=== PATIENT | female | born 1985 | race Caucasian/White ===

== ENCOUNTER 2022-05-29 05:20 | Emergency (ER) | payer SELFPAY ==
--- NOTE | 2022-05-29 05:39 | ED Integumentary General ---
General Stated Complaint: RASH Source: patient Exam Limitations: no limitations (MADDY SILVA MD) History of Present Illness Date Seen by Provider: May 29, 2022 Time Seen by Provider: 17:25 Initial Comments Patient is a 36-year-old female who presents to the emergency department today with a chief complaint of diffuse maculopapular rash. Slightly erythematous. She woke up just prior to arrival itching with a diffuse rash that involves her face torso and extremities. She recently started Lamictal about a week ago. She was concerned as her prescriber advised her that if she developed any type of rash she needed to come immediately to the emergency department. She denies any voice change or difficulty swallowing. No shortness of breath, cough. No wheezing. No nausea, vomiting or diarrhea. She has never had anything like this before. She cannot think of any other triggers that may have caused the rash. No recent illnesses. No vaccinations. No sick contacts. She was started on Lamictal for bipolar disorder. Timing/Duration: this morning Severity: moderate Location: generalized Possible Cause: medications (possibly lamictal) Associated Symptoms: other (pruritis) (MADDY SILVA MD) Allergies and Home Medications Allergies Coded Allergies: lamotrigine (Verified Allergy, Unknown, 05/29/22) Patient Home Medication List Home Medication List Reviewed: Yes (MADDY SILVA MD) Review of Systems Review of Systems Constitutional: see HPI EENTM: no symptoms reported Respiratory: no symptoms reported Cardiovascular: no symptoms reported Gastrointestinal: no symptoms reported Genitourinary: no symptoms reported Skin: pruritus, rash Psychiatric/Neurological: Other (bipolar disorder) (MADDY SILVA MD) All Other Systems Reviewed Negative Unless Noted: Yes (MADDY SILVA MD) Physical Exam Vital Signs Vital Signs - First Documented 05/29/22 05:35 Temp 36.7 Pulse 113 Resp 20 B/P (MAP) 128/92 (104) Pulse Ox 98 (TIEN RUBI MD) Vital Signs Capillary Refill : (MADDY SILVA MD) General Appearance: WD/WN, no apparent distress HEENT: PERRL/EOMI, pharynx normal, other (no mucous membrane involvement) Neck: non-tender, full range of motion, supple Cardiovascular: regular rate, rhythm Respiratory: lungs clear, normal breath sounds, no respiratory distress, no acc essory muscle use Extremities: normal range of motion, normal inspection, no pedal edema Neurologic/Psychiatric: alert, normal mood/affect ((anxious)), oriented x 3 Skin: normal color, warm/dry Skin Problem Location: generalized Skin Problem Character: erythema, patchy, rash, other (hive-like, maculpapular; does not involve the lips or oral mucosa; is present sparingly on the face) (MADDY SILVA MD) Progress/Results/Core Measures Results/Orders Medications Given in ED Current Medications Medications Dose Ordered Sig/Naveed Route Start Time Stop Time Status Last Admin Dose Admin Diphenhydramine HCl 50 mg ONCE ONCE PO 05/29/22 05:45 05/29/22 05:46 DC 05/29/22 05:46 50 MG Famotidine 20 mg ONCE ONCE PO 05/29/22 05:45 05/29/22 05:46 DC 05/29/22 05:46 20 MG (TIEN RUBI MD) Vital Signs/I&O 05/29/22 05/29/22 05:35 06:11 Temp 36.7 36.7 Pulse 113 113 Resp 20 20 B/P (MAP) 128/92 (104) 128/92 Pulse Ox 98 98 (TIEN RUBI MD) Progress Progress Note : Time: 05:45 Progress Note Patient seen and examined, 36-year-old who presents with rash and itching status post recently starting Lamictal. Evaluation today includes a physical exam. She last took her Lamictal last evening. She has not taken any medications for the rash. Differential diagnosis considering history and physical examination includes allergic reaction to lamictal, at risk for Andres-Vitaly, hives induced by some other trigger/idiopathic. Patient's vital signs are stable. She has no airway compromise. She will be treated with Benadryl and Pepcid. Would not at this point give her prednisone as she has bipolar disorder and would not want to trigger a zoe. Recommendations for Benadryl and Pepcid for the next couple of days while her body metabolizes the Lamictal. Would recommend that she call her provider this morning to arrange for another medication so that she is not unmedicated for her bipolar disorder and at risk for exacerbations. Patient is comfortable with plan of care. All questions are sought and answered. (MADDY SILVA MD) Progress Note : Progress Note 0627: Reevaluated. Patient states that she is actually feeling better. I rediscussed discharge instructions. Discharged home with return precautions. Patient and family verbalized understanding instructions and agreement with plan. (TIEN RUBI MD) Departure Impression Primary Impression: Hives Disposition: 01 HOME, SELF-CARE Condition: Improved Departure-Patient Inst. Decision time for Depature: 05:47 (MADDY SILVA MD) Decision time for Depature: 06:28 (TIEN RUBI MD) Referrals: [facility] (PCP/Family) Primary Care Physician Patient Instructions: [place]der (DC) Add. Discharge Instructions: Take heyi-whh-bgnpelg Benadryl 1 to 2 tablets every 6 hours as needed for itching. Cool showers will help decrease the itching as well. Take extk-wtw-phprmoq generic Pepcid 20 mg twice daily for the next 2 to 3 days. Please contact your provider at [facility] today, this morning so that you can be reevaluated in clinic hopefully today and possibly start a new medication for your bipolar disorder as soon as possible. Return to the emergency department if you notice any skin blistering or peeling, shortness of breath, difficulty swallowing or speaking or any other emergent, concerning symptoms. Copy Copies To 1: DIEGO FONSECA KATHRYN M MD May 29, 2022 05:39 TIEN RUBI MD May 29, 2022 06:29
[2022-05-29] MEDS ORDERED: FAMOTIDINE 20 MG (PEPCID) TABLET PO ONE (05:45)
[2022-05-29] MEDS ORDERED: diphenhydrAMINE 25 MG TAB (BENADRYL) PO ONE (05:45)
[2022-05-29 06:11] VITALS: BP 128/92
[2022-05-30] MEDS ORDERED: FAMO40TA72 PO (10:34)
[2022-05-30] MEDS ORDERED: PRD20T PO (10:34)
== END 2022-05-29 06:34 | disposition home or self-care (01) ==
LOC: EDUNIT# 05:20 → ER 05:24
DX: L50.9 Urticaria, unspecified (principal); F31.9 Bipolar disorder, unspecified; Z88.8 Allergy status to other drugs, medicaments and biological substances; Z28.310 Unvaccinated for COVID-19; Z79.899 Other long term (current) drug therapy
CPT/HCPCS: 99283

== ENCOUNTER 2022-05-30 07:55 | Emergency (ER) | payer SELFPAY ==
[~2022-05-30] VITALS: Ht 149 cm; Wt 55.0 kg
[2022-05-30] MEDS ORDERED: FAMOTIDINE 20MG/2ML IV (PEPCID) IV STA (08:44)
[2022-05-30] MEDS ORDERED: methylPREDNISolone 125 MG (Solu-MEDROL) VIAL IV STA (08:44)
[2022-05-30] MEDS ORDERED: diphenhydrAMINE 50 MG/ML INJ (BENADRYL) IV STA (08:44)
[2022-05-30] MEDS ORDERED: NS IV 1000 ML 1,000 ML IV SCH (08:45)
--- NOTE | 2022-05-30 08:46 | ED Integumentary General ---
General Chief Complaint: Allergic Reaction Stated Complaint: ALLERGIC REACTION TO PRESCRIPTION MEDICATION Nursing Triage Note: PT AMB TO RM 5 PT CO OF ALLERGIC RX TO LAMICTAL, STATES WAS SEEN IN ED. PT HAS BEEN TAKING BENADRYL AND PEPCID, PT CONT TO HAVE HIVES ITCHING, IS HYPERVENTILATING. PT STATES FEELS WEAK AND BOTTOM LIP IS SWOLLEN. Source: patient History of Present Illness Date Seen by Provider: May 30, 2022 Time Seen by Provider: 08:35 Initial Comments PT ARRIVES VIA POV FROM HOME WITH PARENTS C/O HIVES ALL OVER BODY SINCE YESTERDAY MORNING SHE WAS SEEN IN ER YESTERDAY MORNING FOR SAME. SHE WAS GIVEN BENADRYL AND PEPCID AND HIVES WENT AWAY PT HAD BEEN STARTED ON LAMICTAL ABOUT 1 1/2 WEEKS AGO FOR BIPOLAR NO OTHER NEW MEDICATIONS, FOODS/DRINKS OR PRODUCTS NO HISTORY OF SIMILAR SHE CALLED HER MENTAL HEALTH PROVIDER YESTERDAY, AFTER BEING SEEN IN ER, AND THE PROVIDER ADVISED HER TO CONTINUE TO TAKE THE MEDICATION, SO SHE TOOK IT AGAIN YESTERDAY--LAST DOSE WAS AT 1800 LAST NIGHT. THE HIVES RETURNED DURING THE NIGHT, AND ARE WORSE, AND NOW HER LOWER LIP IS SWOLLEN AND SHE IS HAVING A LITTLE BIT OF DIFFICULTY SWALLOWING SHE IS VERY ANXIOUS AND FEELS SHAKEY NO DIFFICULTY BREATHING OR TALKING AND VOICE IS NOT HOARSE. NO COUGH SHE FEELS A LITTLE LIGHTHEADED WHEN SHE STANDS UP. NO SYNCOPE NO CHEST PAIN OR PALPITATIONS NO WHEEZING NO NAUSEA/VOMITING. NO FEVER/SWEATS PCP: NONE MENTAL HEALTH: [facility] Allergies and Home Medications Allergies Coded Allergies: lamotrigine (Verified Allergy, Unknown, 05/29/22) Patient Home Medication List Famotidine (Pepcid) 40 Mg Tablet, 40 MG PO DAILY Prescribed by: ROBRET DURHAM on 05/30/22 1034 Prednisone (Prednisone) 20 Mg Tab, 40 MG PO DAILY Prescribed by: ROBERT DURHAM on 05/30/22 1034 Review of Systems Review of Systems Constitutional: see HPI, dizziness EENTM: see HPI Respiratory: no symptoms reported; No cough, No short of breath, No wheezing Cardiovascular: no symptoms reported; No chest pain, No edema, No palpitations, No syncope, No vascular heart diseas Gastrointestinal: no symptoms reported Genitourinary: no symptoms reported Musculoskeletal: no symptoms reported Skin: see HPI Psychiatric/Neurological: Anxiety; Denies Headache, Denies Numbness, Denies Paresthesia, Denies Seizure, Denies Tingling, Denies Tremors, Denies Weakness Endocrine: No Symptoms Reported Hematologic/Lymphatic: No Symptoms Reported Past Sezdugm-Iafnyc-Pbzttg Hx Patient Social History Tobacco Use?: Yes Tobacco type used: Cigarettes Smoking Status: Current Everyday Smoker Use of E-Cig and/or Vaping dev: No Substance use?: No Alcohol Use?: No Pt feels they are or have been: No Immunizations Up To Date Influenza Vaccine Up-to-Date: No; Not Current First/Initial COVID19 Vaccinat: Y Second COVID19 Vaccination Jaya: Y Past Medical History Surgery/Hospitalization HX: BIPOLAR Surgeries: No Respiratory: No Cardiac: No Neurological: No : No Genitourinary: No Gastrointestinal: No Musculoskeletal: No Endocrine: No HEENT: No Cancer: No Psychosocial: Yes Anxiety, Bipolar, Depression Physical Exam Vital Signs Vital Signs - First Documented 05/30/22 08:25 Temp 36.7 Pulse 109 Resp 28 B/P (MAP) 133/88 (103) Pulse Ox 100 Capillary Refill : Less Than 3 Seconds General Appearance: WD/WN, no apparent distress, other (VERY ANXIOUS, TALKING RAPIDLY, NON-STOP AND IS MILDLY HYPERVENTILATING ON ARRIVAL) HEENT: PERRL/EOMI, other (MILD SWELLING OF LOWER LIP. NO INTRA-ORAL SWELLING. ) Neck: non-tender, normal inspection Cardiovascular: regular rate, rhythm, no murmur Respiratory: normal breath sounds, no respiratory distress, no accessory muscle use Gastrointestinal: non tender, soft Back: normal inspection, no CVA tenderness Extremities: normal range of motion, non-tender, no pedal edema, no calf tenderness, normal capillary refill Neurologic/Psychiatric: trial justice II-XII nml as tested, no motor/sensory deficits, alert, oriented x 3, other (ANXIOUS) Skin: normal color, warm/dry, other (PATCHY HIVES SCATTERED OVER MOST OF BODY--PALMS ARE INVOLVED, WITH MILD SWELLING OF HYPOTHENAR EMINENCES. NO RASH TO FACE OR SCALP OR SOLES. ) Progress/Results/Core Measures Results/Orders Lab Results Laboratory Tests Test 05/30/22 09:00 05/30/22 09:42 Range/Units White Blood Count 9.5 4.3-11.0 10^3/uL Red Blood Count 4.83 3.80-5.11 10^6/uL Hemoglobin 14.7 11.5-16.0 g/dL Hematocrit 44 35-52 % Mean Corpuscular Volume 91 80-99 fL Mean Corpuscular Hemoglobin 30 25-34 pg Mean Corpuscular Hemoglobin Concent 34 32-36 g/dL Red Cell Distribution Width 12.1 10.0-14.5 % Platelet Count 260 130-400 10^3/uL Mean Platelet Volume 9.3 9.0-12.2 fL Immature Granulocyte % (Auto) 0 % Neutrophils (%) (Auto) 81 H 42-75 % Lymphocytes (%) (Auto) 12 12-44 % Monocytes (%) (Auto) 6 0-12 % Eosinophils (%) (Auto) 0 0-10 % Basophils (%) (Auto) 0 0-10 % Neutrophils # (Auto) 7.7 1.8-7.8 10^3/uL Lymphocytes # (Auto) 1.2 1.0-4.0 10^3/uL Monocytes # (Auto) 0.6 0.0-1.0 10^3/uL Eosinophils # (Auto) 0.0 0.0-0.3 10^3/uL Basophils # (Auto) 0.0 0.0-0.1 10^3/uL Immature Granulocyte # (Auto) 0.0 0.0-0.1 10^3/uL Erythrocyte Sedimentation Rate 3 0-20 MM/HR Prothrombin Time 13.6 12.2-14.7 SEC INR Comment 1.0 0.8-1.4 Activated Partial Thromboplast Time 36 H 24-35 SEC Sodium Level 137 135-145 MMOL/L Potassium Level 3.6 3.6-5.0 MMOL/L Chloride Level 107 98-107 MMOL/L Carbon Dioxide Level 19 L 21-32 MMOL/L Anion Gap 11 5-14 MMOL/L Blood Urea Nitrogen 12 7-18 MG/DL Creatinine 0.87 0.60-1.30 MG/DL Estimat Glomerular Filtration Rate 89 BUN/Creatinine Ratio 14 Glucose Level 93 70-105 MG/DL Calcium Level 9.6 8.5-10.1 MG/DL Corrected Calcium 9.2 8.5-10.1 MG/DL Total Bilirubin 0.8 0.1-1.0 MG/DL Aspartate Amino Transf (AST/SGOT) 16 5-34 U/L Alanine Aminotransferase (ALT/SGPT) 22 0-55 U/L Alkaline Phosphatase 50 40-136 U/L C-Reactive Protein High Sensitivity 0.28 0.00-0.50 MG/DL Total Protein 7.1 6.4-8.2 GM/DL Albumin 4.5 3.2-4.5 GM/DL Serum Test, Qualitative NEGATIVE NEGATIVE Urine Color YELLOW Urine Clarity CLEAR Urine pH 6.0 5-9 Urine Specific [place] 1.015 L 1.016-1.022 Urine Protein NEGATIVE NEGATIVE Urine Glucose (UA) NEGATIVE NEGATIVE Urine Ketones NEGATIVE NEGATIVE Urine Nitrite NEGATIVE NEGATIVE Urine Bilirubin NEGATIVE NEGATIVE Urine Urobilinogen 0.2 < = 1.0 MG/DL Urine Leukocyte Esterase NEGATIVE NEGATIVE Urine RBC (Auto) NEGATIVE NEGATIVE Urine RBC NONE /HPF Urine WBC NONE /HPF Urine Squamous Epithelial Cells RARE /HPF Urine Crystals NONE /LPF Urine Bacteria NEGATIVE /HPF Urine Casts NONE /LPF Urine Mucus NEGATIVE /LPF Urine Culture Indicated NO Urine Opiates Screen NEGATIVE NEGATIVE Urine Oxycodone Screen NEGATIVE NEGATIVE Urine Methadone Screen NEGATIVE NEGATIVE Urine Propoxyphene Screen NEGATIVE NEGATIVE Urine Barbiturates Screen NEGATIVE NEGATIVE Ur Tricyclic Antidepressants Screen NEGATIVE NEGATIVE Urine Phencyclidine Screen NEGATIVE NEGATIVE Urine Amphetamines Screen NEGATIVE NEGATIVE Urine Methamphetamines Screen NEGATIVE NEGATIVE Urine Benzodiazepines Screen NEGATIVE NEGATIVE Urine Cocaine Screen NEGATIVE NEGATIVE Urine Cannabinoids Screen NEGATIVE NEGATIVE My Orders Orders - ROBERT DURHAM DO Ed Iv/Invasive Line Start (05/30/22 08:44) Monitor-Rhythm Ecg Trace Only (05/30/22 08:44) Cbc With Automated Diff (05/30/22 08:44) Comprehensive Metabolic Panel (05/30/22 08:44) Hs C Reactive Protein (05/30/22 08:44) Hcg,Qualitative Serum (05/30/22 08:44) Protime With Inr (05/30/22 08:44) Partial Thromboplastin Time (05/30/22 08:44) Erythrocyte Sedimentation Rate (05/30/22 08:44) Ed Iv/Invasive Line Start (05/30/22 08:44) Ns Iv 1000 Ml (Sodium Chloride 0.9%) (05/30/22 08:45) Famotidine Injection (Pepcid Injection) (05/30/22 08:44) Diphenhydramine Injection (Benadryl Inje (05/30/22 08:44) Methylprednisolone Sod Succ (Solu-Medrol (05/30/22 08:44) Drug Screen Stat (Urine) (05/30/22 09:01) Ua Culture If Indicated (05/30/22 09:01) Diphenhydramine Injection (Benadryl Inje (05/30/22 10:15) Famotidine Injection (Pepcid Injection) (05/30/22 10:15) Methylprednisolone Sod Succ (Solu-Medrol (05/30/22 10:15) Medications Given in ED Current Medications Medications Dose Ordered Sig/Naveed Route Start Time Stop Time Status Last Admin Dose Admin Diphenhydramine HCl 50 mg ONCE ONCE IVP 05/30/22 10:15 05/30/22 10:16 DC 05/30/22 10:31 50 MG Famotidine 40 mg ONCE ONCE IVP 05/30/22 10:15 05/30/22 10:16 DC 05/30/22 10:31 40 MG Methylprednisolone Sodium Succinate 125 mg ONCE ONCE IVP 05/30/22 10:15 05/30/22 10:16 DC 05/30/22 10:30 125 MG Vital Signs/I&O 05/30/22 08:25 Temp 36.7 Pulse 109 Resp 28 B/P (MAP) 133/88 (103) Pulse Ox 100 Blood Pressure Mean: 103 Progress Progress Note : Progress Note PT WAS GIVEN: -BENADRYL -PEPCID -SOLU-MEDROL HIVES FADING, BUT NOT GONE, AND LOWER LIP IS STILL SWOLLEN. NO DIFFICULTY SWALLOWING NO ANXIETY OR SHAKING FROM THE STEROIDS. PT IS MUCH CALMER NOW. REPEAT DOSING OF THE ABOVE WAS GIVEN HIVES NEARLY COMPLETELY GONE AT DISMISSAL. REVIEWED PREVIOUS ER RECORD, DISCUSSED TEST RESULTS, ANTICIPATED COURSE, MEDICATIONS, NEED FOR FOLLOW UP AND RETURN PRECAUTIONS. Departure Impression Primary Impression: Hives Disposition: HOME, SELF-CARE Condition: Improved Departure-Patient Inst. Decision time for Depature: 11:43 Referrals: [facility] (PCP) Primary Care Physician Patient Instructions: Hives (DC) Add. Discharge Instructions: HOME, REST LOTS OF CLEAR LIQUIDS--WATER, GATORADE TAKE CLARITIN 10 MG IN AM, THEN BENADRYL 50 MG AT NIGHT NEEDED FOR RASH, ITCHING AND SWELLING STOP LAMICTAL FOLLOW UP WITH YOUR MENTAL HEALTH PROVIDER NEXT WEEK FOR FURTHER CARE RETURN TO ER IF SYMPTOMS WORSEN. All discharge instructions reviewed with patient and/or family. Voiced understanding. Scripts Famotidine (Pepcid) 40 Mg Tablet 40 MG PO DAILY, #10 TAB Prov: ROBERT DURHAM DO 05/30/22 Prednisone (Prednisone) 20 Mg Tab 40 MG PO DAILY, #6 TAB 0 Refills Prov: ROBERT DURHAM DO 05/30/22 ROBERT DURHAM DO May 30, 2022 08:46
[2022-05-30 09:22] LABS: BASOPHILS % (AUTO) 0 % (0-10); EOSINOPHILS % (AUTO) 0 % (0-10); HEMATOCRIT 44 % (35-52); HEMOGLOBIN 14.7 g/dL (11.5-16.0); LYMPHOCYTES # (AUTO) 1.2 10^3/uL (1.0-4.0); LYMPHOCYTES % (AUTO) 12 % (12-44); MEAN CORPUSCULAR HEMOGLOBIN 30 pg (25-34); MEAN CORPUSCULAR HGB CONC 34 g/dL (32-36); MEAN CORPUSCULAR VOLUME 91 fL (80-99); MEAN PLATELET VOLUME 9.3 fL (9.0-12.2); MONOCYTES # (AUTO) 0.6 10^3/uL (0.0-1.0); MONOCYTES % (AUTO) 6 % (0-12); NEUTROPHILS # (AUTO) 7.7 10^3/uL (1.8-7.8); NEUTROPHILS % (AUTO) 81 % (42-75); PLATELET COUNT 260 10^3/uL (130-400); WHITE BLOOD COUNT 9.5 10^3/uL (4.3-11.0)
[2022-05-30 09:24] LABS: ALBUMIN 4.5 GM/DL (3.2-4.5); POTASSIUM 3.6 MMOL/L (3.6-5.0)
[2022-05-30 09:25] LABS: CALCIUM 9.6 MG/DL (8.5-10.1)
[2022-05-30 09:26] LABS: PROTHROMBIN TIME PATIENT 13.6 SEC (12.2-14.7)
[2022-05-30 09:27] LABS: TOTAL PROTEIN 7.1 GM/DL (6.4-8.2)
[2022-05-30 09:28] LABS: BILIRUBIN,TOTAL 0.8 MG/DL (0.1-1.0)
[2022-05-30 09:30] LABS: CREATININE SERUM 0.87 MG/DL (0.60-1.30)
[2022-05-30 09:56] LABS: BILIRUBIN,URINE NEGATIVE (NEGATIVE); CLARITY,URINE CLEAR; COLOR,URINE YELLOW; GLUCOSE, URINE (UA) NEGATIVE (NEGATIVE); KETONES,URINE NEGATIVE (NEGATIVE); LEUKOCYTE ESTERASE ,URINE NEGATIVE (NEGATIVE); NITRITE,URINE NEGATIVE (NEGATIVE); PROTEIN,URINE NEGATIVE (NEGATIVE)
[2022-05-30 10:00] LABS: ERYTHROCYTE SEDIMENTATION RATE 3 MM/HR (0-20)
[2022-05-30 10:03] LABS: BACTERIA,URINE NEGATIVE /HPF; SQUAMOUS EPITHELIAL CELL,UR RARE /HPF
[2022-05-30] MEDS ORDERED: FAMOTIDINE 20MG/2ML IV (PEPCID) IVP ONE (10:15)
[2022-05-30] MEDS ORDERED: diphenhydrAMINE 50 MG/ML INJ (BENADRYL) IVP ONE (10:15)
[2022-05-30] MEDS ORDERED: methylPREDNISolone 125 MG (Solu-MEDROL) VIAL IVP ONE (10:15)
[2022-05-30 10:19] LABS: AMPHETAMINE SCREEN, URINE NEGATIVE (NEGATIVE); BARBITURATE SCREEN URINE NEGATIVE (NEGATIVE); BENZODIAZEPINES SCREEN URINE NEGATIVE (NEGATIVE); CANNABINOID SCREEN, URINE NEGATIVE (NEGATIVE); COCAINE SCREEN URINE NEGATIVE (NEGATIVE); METHADONE STAT NEGATIVE (NEGATIVE); OPIATE SCREEN URINE NEGATIVE (NEGATIVE); OXYCODONE STAT NEGATIVE (NEGATIVE); PROPOXYPHENE STAT NEGATIVE (NEGATIVE); TRICYCLIC ANTIDEPRESSANTS SCRE NEGATIVE (NEGATIVE)
[2022-05-30] MEDS ORDERED: FAMO40TA72 PO (10:34)
[2022-05-30] MEDS ORDERED: PRD20T PO (10:34)
[2022-05-30 12:12] VITALS: BP 104/71
== END 2022-05-30 12:17 | disposition home or self-care (01) ==
LOC: EDUNIT# 07:55 → ER 07:57
DX: L50.9 Urticaria, unspecified (principal); F17.210 Nicotine dependence, cigarettes, uncomplicated
CPT/HCPCS: 36415; 80053; 80306; 81000; 84703; 85025; 85610; 85652; 85730; 86141; 93041

== ENCOUNTER 2022-09-11 07:11 | Emergency (ER) | payer SELFPAY ==
[~2022-09-11] VITALS: Ht 150 cm; Wt 61.0 kg
[~2022-09-11 07:11] MED LIST: FAMO40TA72 PO; PRD20T PO
--- NOTE | 2022-09-11 07:25 | ED Abdominal Pain ---
General Chief Complaint: Abdominal/GI Problems Stated Complaint: ABD PAIN Nursing Triage Note: PT STATES ABD PAIN THAT STARTED ABOUT 0200, VOMITING, LLQ PAIN HAS RADIATED AROUND TO HER LT FLANK Source of Information: Patient Exam Limitations: No Limitations History of Present Illness Date Seen by Provider: September 11, 2022 Time Seen by Provider: 07:24 Initial Comments Patient is a 37-year-old female who presents to the emergency room with a chief complaint of waking up this morning around 2 AM with nausea vomiting, lower abdominal pain, left lower quadrant pain and back pain. Patient states this is the worst pain she has ever been in her life. She states nothing makes it any better or any worse. She did take a leftover penicillin tablet this morning thinking she might have an infection. She denies dysuria, urgency or frequency. She states she feels like she cannot urinate or have a bowel movement. She denies any history of known colon problems. She states she is not . Her last Depo shot was about a week ago. No abnormal vaginal discharge or bleeding. She is only had 3 C-sections. She has a grandfather who had colon cancer. She has never had a colonoscopy. She denies fevers or chills. She has vomited multiple times this morning. She has had water to drink today. She has had kidney stones "years ago". Timing/Duration: 4-6 Hours Severity/Quality: Severe, Aching, Cramping Location: LLQ Radiation: Flank (left flank) Activities at Onset: Sleeping Associated Symptoms: Back Pain, Nausea/Vomiting Allergies and Home Medications Allergies Coded Allergies: lamotrigine (Verified Allergy, Unknown, 05/29/22) Patient Home Medication List Home Medication List Reviewed: Yes Famotidine (Pepcid) 40 Mg Tablet, 40 MG PO DAILY Prescribed by: ROBERT DURHAM on 05/30/22 1034 Prednisone (Prednisone) 20 Mg Tab, 40 MG PO DAILY Prescribed by: ROBERT DURHAM on 05/30/22 1034 Review of Systems Review of Systems Constitutional: see HPI EENTM: No Symptoms Reported Respiratory: No Symptoms Reported Cardiovascular: No Symptoms Reported Gastrointestinal: Abdominal Pain, Nausea, Vomiting Genitourinary: No Symptoms Reported Musculoskeletal: no symptoms reported Skin: no symptoms reported Psychiatric/Neurological: No Symptoms Reported All Other Systems Reviewed Negative Unless Noted: Yes Past Jprjyon-Iywbuc-Agupid Hx Patient Social History Tobacco Use?: Yes Tobacco type used: Cigarettes Smoking Status: Current Everyday Smoker Substance use?: No Alcohol Use?: No Immunizations Up To Date First/Initial COVID19 Vaccinat: Y Second COVID19 Vaccination Jaya: Y Third COVID19 Vaccination Date: Y Past Medical History Surgery/Hospitalization HX: BIPOLAR Surgeries: No Respiratory: No Cardiac: No Neurological: No Genitourinary: No Gastrointestinal: No Musculoskeletal: No Endocrine: No HEENT: No Cancer: No Psychosocial: Yes Anxiety, Bipolar, Depression Physical Exam Vital Signs Vital Signs - First Documented 09/11/22 07:17 Temp 36.5 Pulse 87 B/P (MAP) 122/76 (91) Pulse Ox 100 O2 Delivery Room Air Capillary Refill : Height/Weight/BMI Height: '" Weight: lbs. oz. kg; 27.00 BMI Method: General Appearance: WD/WN, mild distress, thin HEENT: PERRL/EOMI Respiratory: lungs clear, normal breath sounds, no respiratory distress, no accessory muscle use Cardiovascular: normal peripheral pulses, regular rate, rhythm Gastrointestinal: soft, abnormal bowel sounds (hypoactive), tenderness (low left flank) Progress/Results/Core Measures Results/Orders Lab Results Laboratory Tests Test 09/11/22 07:30 09/11/22 08:45 Range/Units White Blood Count 7.2 4.3-11.0 10^3/uL Red Blood Count 4.71 3.80-5.11 10^6/uL Hemoglobin 14.6 11.5-16.0 g/dL Hematocrit 43 35-52 % Mean Corpuscular Volume 92 80-99 fL Mean Corpuscular Hemoglobin 31 25-34 pg Mean Corpuscular Hemoglobin Concent 34 32-36 g/dL Red Cell Distribution Width 12.3 10.0-14.5 % Platelet Count 173 130-400 10^3/uL Mean Platelet Volume 9.9 9.0-12.2 fL Immature Granulocyte % (Auto) 1 % Neutrophils (%) (Auto) 65 42-75 % Lymphocytes (%) (Auto) 27 12-44 % Monocytes (%) (Auto) 5 0-12 % Eosinophils (%) (Auto) 1 0-10 % Basophils (%) (Auto) 0 0-10 % Neutrophils # (Auto) 4.7 1.8-7.8 10^3/uL Lymphocytes # (Auto) 2.0 1.0-4.0 10^3/uL Monocytes # (Auto) 0.4 0.0-1.0 10^3/uL Eosinophils # (Auto) 0.1 0.0-0.3 10^3/uL Basophils # (Auto) 0.0 0.0-0.1 10^3/uL Immature Granulocyte # (Auto) 0.1 0.0-0.1 10^3/uL Sodium Level 140 135-145 MMOL/L Potassium Level 4.0 3.6-5.0 MMOL/L Chloride Level 109 H 98-107 MMOL/L Carbon Dioxide Level 18 L 21-32 MMOL/L Anion Gap 13 5-14 MMOL/L Blood Urea Nitrogen 13 7-18 MG/DL Creatinine 1.02 0.60-1.30 MG/DL Estimat Glomerular Filtration Rate 73 BUN/Creatinine Ratio 13 Glucose Level 112 H 70-105 MG/DL Calcium Level 9.1 8.5-10.1 MG/DL Urine Color YELLOW Urine Clarity CLEAR Urine pH 6.5 5-9 Urine Specific [place] 1.020 1.016-1.022 Urine Protein TRACE H NEGATIVE Urine Glucose (UA) NEGATIVE NEGATIVE Urine Ketones NEGATIVE NEGATIVE Urine Nitrite NEGATIVE NEGATIVE Urine Bilirubin NEGATIVE NEGATIVE Urine Urobilinogen 0.2 < = 1.0 MG/DL Urine Leukocyte Esterase NEGATIVE NEGATIVE Urine RBC (Auto) 3+ H NEGATIVE Urine RBC 10-25 H /HPF Urine WBC RARE /HPF Urine Squamous Epithelial Cells 10-25 H /HPF Urine Crystals NONE /LPF Urine Bacteria TRACE /HPF Urine Casts NONE /LPF Urine Mucus SMALL H /LPF Urine Culture Indicated NO My Orders Orders - MADDY SILVA MD Ed Iv/Invasive Line Start (09/11/22 07:33) Cbc With Automated Diff (09/11/22 07:33) Basic Metabolic Panel (09/11/22 07:33) Ua Culture If Indicated (09/11/22 07:33) Urine Bedside (09/11/22 07:33) Ns Iv 1000 Ml (Sodium Chloride 0.9%) (09/11/22 07:44) Ketorolac Injection (Toradol Injection) (09/11/22 07:45) Ondansetron Injection (Zofran Injectio (09/11/22 07:45) Ct Abd/Pelvis Wo(Kidney Stone) (09/11/22 09:30) Medications Given in ED Current Medications Medications Dose Ordered Sig/Naveed Route Start Time Stop Time Status Last Admin Dose Admin Ketorolac Tromethamine 15 mg ONCE ONCE IVP 09/11/22 07:45 09/11/22 07:46 DC 09/11/22 07:52 15 MG Ondansetron HCl 4 mg ONCE ONCE IVP 09/11/22 07:45 09/11/22 07:46 DC 09/11/22 07:52 4 MG Vital Signs/I&O 09/11/22 09/11/22 07:17 07:52 Temp 36.5 36.5 Pulse 87 B/P (MAP) 122/76 (91) Pulse Ox 100 O2 Delivery Room Air Blood Pressure Mean: 91 Departure Impression Primary Impression: Abdominal pain Qualified Codes: R10.32 - Left lower quadrant pain Additional Impression: Hematuria Qualified Codes: R31.9 - Hematuria, unspecified Disposition: 01 HOME, SELF-CARE Condition: Improved Departure-Patient Inst. Decision time for Depature: 09:58 Referrals: [facility] (PCP/Family) Primary Care Physician Patient Instructions: Abdominal Pain, Adult ED Add. Discharge Instructions: Drink plenty of fluids to stay well hydrated. Over the counter ibuprofen 3 pills which is 600mg, every 6 hours with food as needed for pain. If the pain worsens, if you have fever, please return to the ER for re- evaluation. PLease follow up with your family doctor. Copy Copies To 1: DIEGO FONSECA KATHRYN M MD September 11, 2022 07:24
[2022-09-11] MEDS ORDERED: NS IV 1000 ML 1,000 ML IV STA (07:44)
[2022-09-11] MEDS ORDERED: ONDANSETRON 4 MG/2 ML (SDV) Z0FRAN IVP ONE (07:45)
[2022-09-11] MEDS ORDERED: KETOROLAC 15 MG/ML VIAL IVP ONE (07:45)
[2022-09-11 07:55] LABS: BASOPHILS % (AUTO) 0 % (0-10); EOSINOPHILS # (AUTO) 0.1 10^3/uL (0.0-0.3); EOSINOPHILS % (AUTO) 1 % (0-10); HEMATOCRIT 43 % (35-52); HEMOGLOBIN 14.6 g/dL (11.5-16.0); LYMPHOCYTES % (AUTO) 27 % (12-44); MEAN CORPUSCULAR HEMOGLOBIN 31 pg (25-34); MEAN CORPUSCULAR HGB CONC 34 g/dL (32-36); MEAN CORPUSCULAR VOLUME 92 fL (80-99); MEAN PLATELET VOLUME 9.9 fL (9.0-12.2); MONOCYTES # (AUTO) 0.4 10^3/uL (0.0-1.0); MONOCYTES % (AUTO) 5 % (0-12); NEUTROPHILS # (AUTO) 4.7 10^3/uL (1.8-7.8); NEUTROPHILS % (AUTO) 65 % (42-75); PLATELET COUNT 173 10^3/uL (130-400); WHITE BLOOD COUNT 7.2 10^3/uL (4.3-11.0)
[2022-09-11 08:04] LABS: CALCIUM 9.1 MG/DL (8.5-10.1)
[2022-09-11 08:09] LABS: CREATININE SERUM 1.02 MG/DL (0.60-1.30)
[2022-09-11 08:55] LABS: BILIRUBIN,URINE NEGATIVE (NEGATIVE); CLARITY,URINE CLEAR; COLOR,URINE YELLOW; GLUCOSE, URINE (UA) NEGATIVE (NEGATIVE); KETONES,URINE NEGATIVE (NEGATIVE); LEUKOCYTE ESTERASE ,URINE NEGATIVE (NEGATIVE); NITRITE,URINE NEGATIVE (NEGATIVE); PH,URINE 6.5 (5-9); PROTEIN,URINE TRACE (NEGATIVE)
[2022-09-11 09:26] LABS: BACTERIA,URINE TRACE /HPF; WBC,URINE RARE /HPF
[2022-09-11 10:03] VITALS: BP 112/77
--- NOTE | 2022-09-11 10:12 | Diagnostic Imaging Report ---
PROCEDURE: CT urinary tract, rule out kidney stone. TECHNIQUE: Multiple contiguous axial images were obtained through the abdomen and pelvis without the use of intravenous contrast. Auto Exposure Controls were utilized during the CT exam to meet ALARA standards for radiation dose reduction. INDICATION: Left flank pain Unenhanced images of liver, gallbladder, pancreas, adrenal glands and spleen are unremarkable. Kidneys are also unremarkable although there is mild prominence of left renal collecting system and ureter. Left ureter is mildly dilated to the level of an approximately 0.2 cm stone in the distal left ureter just above the level of the bladder. No appendiceal region inflammation. There is no evidence of free fluid in the abdomen or pelvis. No pathologically enlarged adenopathy is seen. IMPRESSION: At least partially obstructing 0.2 cm distal left ureteric stone with mild left hydronephrosis. Dictated by: Dictated on workstation # [id number]
== END 2022-09-11 10:03 | disposition home or self-care (01) ==
LOC: EDUNIT# 07:11 → ER 07:13
DX: R10.32 Left lower quadrant pain (principal); R31.9 Hematuria, unspecified; M54.9 Dorsalgia, unspecified; F17.210 Nicotine dependence, cigarettes, uncomplicated
CPT/HCPCS: 36415; 74176; 80048; 81000; 84703; 85025